=== PATIENT | male | born 1990 | race Caucasian/White ===

== ENCOUNTER 2017-06-29 05:22 | Emergency (ER) | payer OTHER ==
[2017-06-29 06:42] VITALS: BP 143/80
== END 2017-06-29 06:42 | disposition home or self-care (01) ==
LOC: ED 05:22
DX: H61.21 Impacted cerumen, right ear (principal); Z88.0 Allergy status to penicillin

== ENCOUNTER 2018-03-02 20:02 | Emergency (ER) | payer OTHER ==
[~2018-03-02] VITALS: Ht 180.3 cm; Wt 113.4 kg
[2018-03-02 20:12] VITALS: Ht 180.3 cm; Wt 113.4 kg
[2018-03-02 22:53] VITALS: BP 135/69
== END 2018-03-02 22:53 | disposition home or self-care (01) ==
LOC: ED 20:02
PROC: 3E023NZ Introduction of Analgesics, Hypnotics, Sedatives into Muscle, Percutaneous Approach (ICD-10-PCS; principal; 2018-03-02)
PROC: BW28ZZZ Computerized Tomography (CT Scan) of Head (ICD-10-PCS; 2018-03-02)
DX: G44.209 Tension-type headache, unspecified, not intractable (principal)
CPT/HCPCS: J1885

== ENCOUNTER → 2018-04-02 | Outpatient (CLI) | payer OTHER ==
[2018-04-02 18:28] LABS: BASOPHIL % 0.9 % (0-2); PLATELET COUNT 349 x10^3mcL (130-400); RED CELL DISTRIBUTION WIDTH 12.7 % (11.5-14.5)
[2018-04-02 18:43] LABS: ALBUMIN 4.2 g/dL (3.4-5.0); ALKALINE PHOSPHATASE 89 U/L (46-116); ALT/SGPT 75 U/L (16-63); AST/SGOT 28 U/L (15-37); BILIRUBIN DIRECT 0.09 mg/dL (0.0-0.2); BILIRUBIN TOTAL 0.6 mg/dL (0.20-1.00); CALCIUM 9.1 mg/dL (8.5-10.1); CARBON DIOXIDE 29.7 mmol/L (21-32); CHLORIDE SERUM 103 mmol/L (98-107); CHOLESTEROL 175 mg/dL (<200); CHOLESTEROL/HDL RATIO 4.1; CREATININE SERUM 0.9 mg/dL (0.7-1.3); GFR1 > 60 mL/min; GLUCOSE SERUM 99 mg/dL (74-106); HDL CHOLESTEROL 43 mg/dL (40-60); SODIUM SERUM 140 mmol/L (136-145); TRIGLYCERIDES 151 mg/dL (<150); URIC ACID 6.3 mg/dL (3.5-7.2)
[2018-04-02 18:45] LABS: TOTAL PROTEIN, SERUM 8.6 g/dL (6.4-8.2)
[2018-04-02 19:06] LABS: ERYTHROCYTE SED RATE 14 mm/hr (0-15)
== END | disposition home or self-care (01) ==
LOC: LB 18:02
PROVIDERS: Internal Medicine
DX: Z00.00 Encounter for general adult medical examination without abnormal findings (principal)
CPT/HCPCS: 86431

== ENCOUNTER → 2018-05-20 | Outpatient (CLI) | payer OTHER | END | disposition home or self-care (01) | LOC: LB 11:21 | DX: R74.0 Nonspecific elevation of levels of transaminase and lactic acid dehydrogenase [LDH] (principal) ==

== ENCOUNTER → 2019-09-26 | Outpatient (CLI) | payer OTHER | END | disposition home or self-care (01) | LOC: RD 13:05 | DX: S23.9XXA Sprain of unspecified parts of thorax, initial encounter (principal); M54.5 Low back pain; V89.2XXA Person injured in unspecified motor-vehicle accident, traffic, initial encounter; Y92.410 Unspecified street and highway as the place of occurrence of the external cause | CPT/HCPCS: 72072 ==